=== PATIENT | male | born 1980 | race Caucasian/White ===

== ENCOUNTER 2017-09-10 19:25 | Emergency (ER) | payer OTHER ==
[~2017-09-10] VITALS: Ht 180.3 cm; Wt 117.9 kg
--- NOTE | 2017-09-10 19:51 | ED Lower Extremity ---
General Chief Complaint: Lower Extremity Stated Complaint: PULLED SOMETHING IN RIGHT LEG Nursing Triage Note: PT PRESENTS TO ER WITH COMPLAINT OF RIGHT CALF PAIN. STATES HE WAS JUMPING IN A HOLE AT WORK AND FELT LIKE SOMEONE HIT HIM IN THE CALF WITH A SLEDGEHAMMER Nursing Sepsis Screen: No Definite Risk Source: patient Exam Limitations: no limitations History of Present Illness Date Seen by Provider: Sep 10, 2017 Time Seen by Provider: 19:46 Initial Comments To ER with sudden onset right calf pain.he is working varying [employer] here in [place].[facility] [place]. He states that the pain began earlier today when he was stepping up out of a hole he felt as though someone hit him in the right calf with a sledgehammer. He continued to walk on it and work a few more hours after this but has had progressive pain and swelling in the right calf since then. Onset: other Severity: moderate Modifying Factors: Worse With Movement Allergies and Home Medications Patient Home Medication List Home Medication List Reviewed: Yes Constitutional: see HPI EENTM: see HPI Respiratory: no symptoms reported Cardiovascular: no symptoms reported Genitourinary: no symptoms reported Musculoskeletal: see HPI Skin: no symptoms reported Psychiatric/Neurological: No Symptoms Reported Past Kjahtjz-[id number]-[id number] Hx Patient Social History Alcohol Use: Occasionally Uses Recreational Drug Use: No Smoking Status: Current Everyday Smoker Type Used: Cigarettes Recent Foreign Travel: No Contact w/Someone Who Travel: No Recent Infectious Disease Expo: No Recent Hopitalizations: No Immunizations Up To Date Tetanus Booster (TDap): Unknown PED Vaccines UTD: Yes Seasonal Allergies Seasonal Allergies: No Past Medical History Surgeries: No Respiratory: No Cardiac: No Neurological: No Genitourinary: No Gastrointestinal: No Musculoskeletal: No Endocrine: No HEENT: No Cancer: No Psychosocial: No Integumentary: No Blood Disorders: No Physical Exam Vital Signs Vital Signs - First Documented 09/10/17 19:34 Temp 98.0 Pulse 106 Resp 20 B/P (MAP) 178/112 (134) Pulse Ox 94 O2 Delivery Room Air Capillary Refill : Less Than 3 Seconds General Appearance: WD/WN, no apparent distress HEENT: PERRL/EOMI, normal ENT inspection Neck: non-tender, full range of motion Respiratory: no respiratory distress, no accessory muscle use Gastrointestinal: normal bowel sounds, non tender Hips: bilateral hip non-tender, bilateral hip normal inspection, bilateral hip normal range of motion Legs: bilateral leg non-tender, bilateral leg normal inspection, bilateral leg normal range of motion; right leg other (the right mid calf is tender to palpation. The right midcalf is tighter than the left calf. However all compartments are still soft the right is just tighter than the left. He is able to fully actively dorsiflex and plantar flex the foot though plantar flexion does result in worsening pain.) Knees: bilateral knee non-tender, bilateral knee normal inspection, bilateral knee normal range of motion Ankles: bilateral ankle non-tender, bilateral ankle normal inspection, bilateral ankle normal range of motion Feet: bilateral foot non-tender, bilateral foot normal inspection, bilateral foot normal range of motion Neurologic/Psychiatric: alert, normal mood/affect, oriented x 3 Progress/Results/Core Measures Results/Orders Vital Signs/I&O 09/10/17 19:34 Temp 98.0 Pulse 106 Resp 20 B/P (MAP) 178/112 (134) Pulse Ox 94 O2 Delivery Room Air Blood Pressure Mean: 134 Departure Impression Primary Impression: Gastrocnemius muscle tear Disposition: 01 HOME, SELF-CARE Condition: Stable Departure-Patient Inst. Decision time for Depature: 19:50 Referrals: NO,LOCAL PHYSICIAN (PCP/Family) Primary Care Physician Patient Instructions: NO INSTRUCTIONS GIVEN Add. Discharge Instructions: 1. Use the pain medication only after work. While at work use plain Tylenol and Motrin. Elevate the foot as much as possible for the next 1-2 days and keep the Ice As Much As Possible for the Next 1-2 Days. Follow-Up with Your Doctor Next Week. These typically in about 2 weeks.All discharge instructions reviewed with patient and/or family. Voiced understanding. ISAMAR B[employer] THER[employer] CERTIFIED SUPERVISOR Sep 10, 2017 19:51
[2017-09-10] MEDS ORDERED: RX-HYDROCODONE/APAP 5/325 MG #4 TAB PK PO ONE (19:55)
[2017-09-10] MEDS ORDERED: RX-HYDROCODONE/APAP 5/325 MG #4 TAB PK PO PRN (20:00)
[2017-09-10 23:43] VITALS: BP 178/112
== END 2017-09-10 20:50 | disposition home or self-care (01) ==
LOC: ER 19:30
DX: S86.111A Strain of other muscle(s) and tendon(s) of posterior muscle group at lower leg level, right leg, initial encounter (principal); F17.210 Nicotine dependence, cigarettes, uncomplicated; X50.0XXA Overexertion from strenuous movement or load, initial encounter; Y92.89 Other specified places as the place of occurrence of the external cause; Y99.0 Civilian activity done for income or pay
CPT/HCPCS: 99283